=== PATIENT | male | born 1960 | race Caucasian/White ===

== ENCOUNTER 2024-09-05 12:25 | Outpatient (REF) | payer MEDICARE, MEDICAID, SELFPAY | END 2024-09-05 12:26 | disposition home or self-care (01) | LOC: HO.HOSX 12:25 | PROVIDERS: Visit Provider Physician Assistant | DX: Z13.89 Encounter for screening for other disorder (principal) ==

== ENCOUNTER 2024-09-25 09:39 | Outpatient (REF) | payer MEDICARE, MEDICAID, SELFPAY ==
--- NOTE | ~2024-09-25 | XR_ITS ---
EXAMINATION: XR HIP LEFT 3 VIEWS CLINICAL INFORMATION: Pain in unspecified hip M25.559. COMPARISON: None available TECHNIQUE: AP pelvis and AP and frog-leg lateral views of the left hip. FINDINGS: The left femoral head is well-seated within the acetabulum. No acute fracture. The pelvic rim is intact. Bilateral visualized sacral joints are normal. No pubic symphysis diastasis. Right hip is intact. L5-S1 lumbosacral spinal fusion hardware partially images. Bilateral pelvic phlebolith. XR/XR hip LT min 2V IMPRESSION: No acute fracture or dislocation of the left hip. Electronically signed by: Jennie Owusu DO 11/07/2024 02:36 PM EST
== END 2024-09-25 09:40 | disposition home or self-care (01) ==
LOC: HO.HOSX 09:39
PROVIDERS: Visit Provider Physician Assistant
DX: M19.90 Unspecified osteoarthritis, unspecified site (principal); M25.552 Pain in left hip
CPT/HCPCS: 73502; 99202

== ENCOUNTER 2024-09-25 11:53 | Outpatient (AMB) | payer MEDICARE, MEDICAID, SELFPAY ==
--- NOTE | 2024-09-25 12:44 | A.OFFVIS_ITS ---
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 Patient has been having ongoing pain for 1 to 2 months. Patient reports he was picking something up from the ground and felt his hip dislocated. He mentions that his pain is worse at night, when walking and also twisting at the torso. Patient has tried and failed naproxen. Allergies acetaminophen [From Vicodin] Allergy (Intermediate, Verified 09/25/24 12:50) Hives codeine Allergy (Intermediate, Verified 09/25/24 12:50) Hives hydrocodone [From Vicodin] Allergy (Intermediate, Verified 09/25/24 12:50) Hives HPI HPI PARKING ENFORCEMENT OFFICER-Left hip pain: Details: 63-year-old male who presents in the office today, as a new patient, for an evaluation of left hip pain. The patient was seen by Arminda Foley PA-C, on 08/04/2024 for evaluation of left hip pain ongoing for two weeks. X-rays of the left hip were obtained. Discussed to pursue left hip MRI for further evaluation. He was prescribed naproxen 500 mg PO Q12H. While in the office today, the patient reports left hip pain which has been ongoing for the past 1-2 months. He states he felt his hip dislocated when picking something up from the ground. He reports worsening left hip pain associated with ambulation and twisting at the torso. He also mentions worsening pain at night. Patient has tried and failed naproxen. [facility] Social History (Updated 09/25/24 @ 12:51 by Feroz Wilkinson) Alcohol intake: current Alcohol intake frequency: does not drink Patient Tobacco Use Status: Current everyday Tobacco user Cigarette Packs Per Day: 0.50 Review of Systems Const All systems reviewed & are unremarkable except as noted in HPI and below Physical Exam Const General: cooperative and no acute distress Orientation/consciousness: patient oriented x3 Resp Effort & Inspection: normal respiratory effort and able to speak in complete sentences Cardio Peripheral pulses: Peripheral pulses 2+ throughout Skin General skin exam: no rashes or lesions noted Neuro General: patient oriented x3 Extrem Other: Left hip: Normal to inspection. No ecchymosis, erythema, or edema. Groin pain with internal and external rotation. No tenderness to palpation over the greater trochanteric bursa. 5/5 strength with resisted hip flexion, knee extension, abduction, and abduction. Able to perform straight leg raises. NVI. Assessment & Plan Assessment & Plan (1) Left hip subluxation: Code(s): S73.002A - Unspecified subluxation of left hip, initial encounter Category: Medical (2) Osteoarthritis: Code(s): M19.90 - Unspecified osteoarthritis, unspecified site Category: Medical Plan Mr. Lechuga is a 63-year-old male who presents in the office today, as a new patient, for an evaluation of left hip pain. The patient was seen by Arminda Foley PA-C, on 08/04/2024 for evaluation of left hip pain ongoing for two weeks. X-rays of the left hip were obtained. Discussed to pursue left hip MRI for further evaluation. He was prescribed Naproxen 500 mg PO Q12H. While in the office today, the patient reports left hip pain which has been ongoing for the past 1-2 months. He states he felt his hip dislocated when picking something up from the ground. He reports worsening left hip pain associated with ambulation and twisting at the torso. He also mentions worsening pain at night. Patient has tried and failed naproxen. We discussed the role of physical therapy and cortisone injection; however, the patient declined both the options at this time. Follow-up will be PRN, or sooner if needed. X-rays of the left hip, which were obtained while in the office today and were reviewed by me, Roxy Saldivar PA-C, revealed: Osteoarthritic changes. MRI of the left hip done which revealed: Negative for any acute pathology. X-rays of the left hip, obtained on 09/25/2024, revealed: Mild osteoarthritis. Patient Instructions: Scribed by Leslie Villa electromedical equipment repairer, for Roxy Saldivar PA-C on 09/25/24 at 12:50 pm EST. Coding Level of Care Code New Pt Level 3 (99782) Diagnoses Left hip subluxation S73.002A Osteoarthritis M19.90
== END 2024-09-25 13:13 | disposition home or self-care (01) ==
LOC: HO.HOS 11:53
PROVIDERS: Visit Provider Physician Assistant
DX: S73.002A Unspecified subluxation of left hip, initial encounter (principal); M19.90 Unspecified osteoarthritis, unspecified site
CPT/HCPCS: 99203